=== PATIENT | male | born 1970 | race Two or more races ===

== ENCOUNTER 2020-07-05 11:03 | Emergency (ER) | payer SELFPAY ==
[~2020-07-05] VITALS: Ht 172.7 cm; Wt 90.7 kg
[~2020-07-05 11:03] MED LIST: Omnipaque 350 100ml vial INJ PRN
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
--- NOTE | 2020-07-05 11:05 | NUR ---
ED Nurse Note: IV line establsihed. Blood sent to lab.
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
[2020-07-05] MEDS ORDERED: Tetanus/Diptheria/Pertussis IM ONE (11:15)
[2020-07-05] MEDS ORDERED: fentaNYL 100 mcg/2 mL IV ONE (11:15)
--- NOTE | 2020-07-05 11:52 | NUR ---
EMERGENCY CONTACT: Mariaelena (): [phone]
[2020-07-05 11:57] LABS: BASOPHILS % (AUTO) 0.7 % (0.0-2.0); EOSINOPHILS % (AUTO) 1.1 % (0.0-3.0); HEMATOCRIT 52.6 % (42.0-52.0); HEMOGLOBIN 17.2 G/DL (14.2-18.0); LYMPHOCYTES % (AUTO) 32.5 % (20.0-45.0); MEAN CORPUSCULAR VOLUME 97 FL (80-99); MONOCYTES % (AUTO) 5.6 % (1.0-10.0); NEUTROPHILS % (AUTO) 60.1 % (45.0-75.0); PLATELET COUNT 190 K/UL (150-450); RED BLOOD COUNT 5.41 M/UL (4.70-6.10); RED CELL DISTRIBUTION WIDTH 11.8 % (11.6-14.8); WHITE BLOOD COUNT 8.7 K/UL (4.8-10.8)
[2020-07-05 12:02] LABS: ANION GAP 9 mmol/L (5-15); BLOOD UREA NITROGEN 21 mg/dL (7-18); CALCIUM 8.7 MG/DL (8.5-10.1); CARBON DIOXIDE 25 MMOL/L (21-32); CHLORIDE 107 MMOL/L (98-107); CREATININE 1.1 MG/DL (0.55-1.30); POTASSIUM 3.9 MMOL/L (3.5-5.1); SODIUM 141 MMOL/L (136-145)
--- NOTE | 2020-07-05 12:05 | NUR ---
ED Nurse Note: Xray at bedside.
[2020-07-05 12:06] LABS: ALANINE AMINOTRANSFERASE 37 U/L (12-78); ALBUMIN 3.9 G/DL (3.4-5.0); ALBUMIN/GLOBULIN RATIO 1.1 (1.0-2.7); ALKALINE PHOSPHATASE 74 U/L (46-116); ASPARTATE AMINO TRANSFERASE 24 U/L (15-37); BILIRUBIN,TOTAL 0.6 MG/DL (0.2-1.0); CREATINE KINASE 154 U/L (26-308)
[2020-07-05] MEDS ORDERED: Morphine Sulfate 4mg/ml Inj (IV USE ONLY) ONE (12:26)
[2020-07-05] MEDS ORDERED: Morphine Sulfate 4mg/ml Inj (IV USE ONLY) IVP ONE ×2 (12:30→16:30)
[2020-07-05] MEDS ORDERED: IBUPROFEN600 M1 ORAL (16:18)
[2020-07-05] MEDS ORDERED: NORCO 7.5-3251 EACH ORAL (16:18)
--- NOTE | 2020-07-05 16:36 | NUR ---
ER DISCHARGE NOTE: Patient is cleared to be discharged per ERMD, pt is aox4, on room air, with stable vital signs. pt was given dc and prescription instructions, pt was able to verbalize understanding, pt id band and iv site removed without complications. pt is able to ambulate with steady gait. pt took all belongings. Pt given knee immobilizer, crutches. pt waiting for for ride
[2020-07-05 16:37] VITALS: BP 132/79
== END 2020-07-05 16:38 | disposition home or self-care (01) ==
LOC: EDBD 11:03 → EMR 11:28
DX: S82.492A Other fracture of shaft of left fibula, initial encounter for closed fracture (principal); V48.3XXA Unspecified car occupant injured in noncollision transport accident in nontraffic accident, initial encounter; Y92.9 Unspecified place or not applicable; Z23 Encounter for immunization
CPT/HCPCS: 36415; 73590; 73706; 80053; 82550; 85025; 85610; 85730; 86850; 86900; 86901; 90471; 90715; 96361; 96374; 96375; 96376; 99284; J2270; J2405; J3010; J7030; Q9967